=== PATIENT | male | born 1940 | race Caucasian/White ===

== ENCOUNTER 2017-12-23 22:02 | Inpatient (IN) ==
[2017-12-23] MEDS ORDERED: SODIUM CHLORIDE 0.9% 500 ML IV STA (22:21)
[2017-12-23 23:18] LABS: Apearance,Urine CLOUDY (Clear); Bilirubin,Urine Negative (Negative); Blood, Urine Small mg/dL (Negative); Glucose,Urine (UA) Negative (Negative); Ketones,Urine Negative (Negative); Nitrite,Urine Negative (Negative); Protein,Urine 100 MG/DL; RBC,Urine 12 /HPF (0-4); Squamous Epithelial Cell,Urine Occasional /HPF (0-10); Urine Color Yellow (Yellow); Urine Specific Gravity 1.015 (1.001-1.035); Urine Urobilinogen < 2.0 EU/DL (0.2-1.0); WBC,Urine 1751 /HPF (0-6)
[2017-12-23 23:29] LABS: Basophils % 0.4 % (0.0-0.8); Eosinophils # 0.1 10*3/uL (0.0-0.87); Eosinophils % 1.5 % (0.00-10.9); Hematocrit 32.7 VOL% (42.0-52.0); Hemoglobin 10.3 GM/DL (14.0-18.0); Immature Granulocytes % 0.4 %; Immature Granulocytes Absolute 0.02 #; Lymphocytes # 1.1 10*3/uL (1.4-4.0); Lymphocytes % 20.8 % (21.2-54.2); Mean Corpuscular HGB Conc 31.5 GM/DL (32-36); Mean Corpuscular Hemoglobin 30 PG (27-34); Mean Corpuscular Volume 93.7 FL (87-102); Mean Platelet Volume 9.6 FL (9.6-12.0); Monocytes # 0.5 10*3/uL (0.11-0.8); Neutrophils # 3.6 10*3/uL (1.4-7.4); Neutrophils % 67.9 % (38.7-73.9); Platelet Count 225 T/CUMM (130-400); Red Blood Count 3.49 MC/CUMM (3.8-5.5); Red Cell Distribution Width 13.9 % (9.3-17.3); White Blood Count 5.2 T/CUMM (4-12)
[2017-12-23] MEDS: SODIUM CHLORIDE 0.45% 1,000 ML IV SCH (23:30)
[2017-12-23] MEDS ORDERED: ONDANSETRON 4 MG/2 ML VIAL IV PRN (23:32)
[2017-12-23] MEDS ORDERED: DEXTROSE 50% 25 GM/50 ML VIAL IV PRN (23:32)
[2017-12-23] MEDS ORDERED: ACETAMINOPHEN 325 MG TABLET PO PRN (23:32)
[2017-12-23] MEDS ORDERED: GLUCAGON 1 MG VIAL IM PRN (23:32)
[2017-12-23] MEDS ORDERED: cefTRIAXone 1,000 MG in SODIUM CHLORIDE 0.9% 100 ML IV STA (23:35)
[2017-12-23 23:56] LABS: Alanine Aminotransferase 17 U/L (16-61); Albumin 3.1 G/DL (3.4-5.0); Alkaline Phosphatase 79 U/L (45-117); Aspartate Amino Transferase 16 U/L (0-37); Bilirubin,Total < 0.39 MG/DL (0.2-1.0); Calcium 8.6 MG/DL (8.5-10.1); Total Protein 7.5 G/DL (6.4-8.3)
[2017-12-23 23:57] LABS: Blood Urea Nitrogen 32 MG/DL (7-18); Glucose 122 MG/DL (74-106); Osmolality,Calculated 290.1 MOS/KG (273-304); Potassium 4.6 MMOL/L (3.5-5.1); Sodium 142 MMOL/L (136-145)
[2017-12-24] MEDS: LISINOPRIL 5 MG TABLET PO SCH (09:07)
[2017-12-24] MEDS: DOCUSATE SODIUM 100 MG CAPSULE PO SCH ×2 (09:07→20:23)
[2017-12-24] MEDS: SOLIFENACIN 5 MG TABLET PO SCH (09:07)
[2017-12-24] MEDS: CETIRIZINE 10 MG TABLET PO SCH (09:07)
[2017-12-24] MEDS: FINASTERIDE 5 MG TABLET PO SCH (09:07)
[2017-12-24] MEDS: cefTRIAXone 1,000 MG in SYRINGE 1 EACH IV SCH (09:07)
[2017-12-24] MEDS: PIOGLITAZONE 15 MG TABLET PO SCH (09:07)
[2017-12-24] MEDS: OMEGA 3 ACID ETHYL ESTERS 1 GM CAPSULE PO SCH (09:07)
[2017-12-24] MEDS: PANTOPRAZOLE 40 MG TABLET PO SCH (09:07)
[2017-12-24] MEDS: GABAPENTIN 300 MG CAPSULE PO SCH ×2 (09:07→20:23)
[2017-12-24] MEDS: FERROUS SULFATE 325 MG TABLET PO SCH (09:08)
[2017-12-24] MEDS: MULTIVITAMIN (CENTRUM) TABLET PO SCH (09:08)
[2017-12-24] MEDS: SODIUM CHLORIDE 0.45% 1,000 ML IV SCH (14:06)
[2017-12-24] MEDS: TAMSULOSIN 0.4 MG CAPSULE PO SCH (20:23)
[2017-12-24] MEDS: ASPIRIN EC 81 MG TABLET PO SCH (20:23)
[2017-12-25] MEDS: SODIUM CHLORIDE 0.45% 1,000 ML IV SCH ×3 (02:26→15:20)
[2017-12-25] MEDS ORDERED: FLUCONAZOLE 200 MG TABLET PO ONE (09:00)
[2017-12-25] MEDS: cefTRIAXone 1,000 MG in SYRINGE 1 EACH IV SCH (10:35)
[2017-12-25 10:43] LABS: Basophils % 0.4 % (0.0-0.8); Eosinophils # 0.1 10*3/uL (0.0-0.87); Eosinophils % 2.7 % (0.00-10.9); Hematocrit 29.6 VOL% (42.0-52.0); Hemoglobin 9.3 GM/DL (14.0-18.0); Immature Granulocytes % 0.4 %; Immature Granulocytes Absolute 0.02 #; Lymphocytes # 1.3 10*3/uL (1.4-4.0); Lymphocytes % 24.4 % (21.2-54.2); Mean Corpuscular HGB Conc 31.4 GM/DL (32-36); Mean Corpuscular Hemoglobin 30 PG (27-34); Mean Platelet Volume 9.7 FL (9.6-12.0); Monocytes # 0.5 10*3/uL (0.11-0.8); Monocytes % 9.5 % (1.7-12.7); Neutrophils # 3.3 10*3/uL (1.4-7.4); Neutrophils % 62.6 % (38.7-73.9); Platelet Count 192 T/CUMM (130-400); Red Blood Count 3.15 MC/CUMM (3.8-5.5); Red Cell Distribution Width 13.7 % (9.3-17.3); White Blood Count 5.3 T/CUMM (4-12)
[2017-12-25 11:06] LABS: Osmolality,Calculated 287.3 MOS/KG (273-304); Potassium 4.3 MMOL/L (3.5-5.1)
[2017-12-25] MEDS: PIOGLITAZONE 15 MG TABLET PO SCH (11:16)
[2017-12-25] MEDS: DOCUSATE SODIUM 100 MG CAPSULE PO SCH ×2 (11:17→20:43)
[2017-12-25] MEDS: MULTIVITAMIN (CENTRUM) TABLET PO SCH (11:17)
[2017-12-25] MEDS: FERROUS SULFATE 325 MG TABLET PO SCH (11:18)
[2017-12-25] MEDS: GABAPENTIN 300 MG CAPSULE PO SCH ×2 (11:19→20:43)
[2017-12-25] MEDS: OMEGA 3 ACID ETHYL ESTERS 1 GM CAPSULE PO SCH (11:19)
[2017-12-25] MEDS: LISINOPRIL 5 MG TABLET PO SCH (11:20)
[2017-12-25] MEDS: FINASTERIDE 5 MG TABLET PO SCH (11:21)
[2017-12-25] MEDS: PANTOPRAZOLE 40 MG TABLET PO SCH (11:22)
[2017-12-25] MEDS: SOLIFENACIN 5 MG TABLET PO SCH (11:22)
[2017-12-25] MEDS: CETIRIZINE 10 MG TABLET PO SCH (11:23)
[2017-12-25] MEDS: ASPIRIN EC 81 MG TABLET PO SCH (20:42)
[2017-12-25] MEDS: TAMSULOSIN 0.4 MG CAPSULE PO SCH (20:43)
[2017-12-26] MEDS: SODIUM CHLORIDE 0.45% 1,000 ML IV SCH ×3 (01:54→15:07)
[2017-12-26] MEDS: cefTRIAXone 1,000 MG in SYRINGE 1 EACH IV SCH (08:56)
[2017-12-26] MEDS: PIOGLITAZONE 15 MG TABLET PO SCH (08:57)
[2017-12-26] MEDS: FERROUS SULFATE 325 MG TABLET PO SCH (08:57)
[2017-12-26] MEDS: MULTIVITAMIN (CENTRUM) TABLET PO SCH (08:57)
[2017-12-26] MEDS: DOCUSATE SODIUM 100 MG CAPSULE PO SCH ×2 (08:57→20:23)
[2017-12-26] MEDS: OMEGA 3 ACID ETHYL ESTERS 1 GM CAPSULE PO SCH (08:58)
[2017-12-26] MEDS: LISINOPRIL 5 MG TABLET PO SCH (08:58)
[2017-12-26] MEDS: FINASTERIDE 5 MG TABLET PO SCH (08:58)
[2017-12-26] MEDS: SOLIFENACIN 5 MG TABLET PO SCH (08:58)
[2017-12-26] MEDS: PANTOPRAZOLE 40 MG TABLET PO SCH (08:58)
[2017-12-26] MEDS: GABAPENTIN 300 MG CAPSULE PO SCH ×2 (08:58→20:23)
[2017-12-26] MEDS: CETIRIZINE 10 MG TABLET PO SCH (08:59)
[2017-12-26] MEDS: ASPIRIN EC 81 MG TABLET PO SCH (20:23)
[2017-12-26] MEDS: TAMSULOSIN 0.4 MG CAPSULE PO SCH (20:23)
[2017-12-27] MEDS: SODIUM CHLORIDE 0.45% 1,000 ML IV SCH ×4 (00:35→22:09)
[2017-12-27 05:34] LABS: Basophils % 0.4 % (0.0-0.8); Eosinophils # 0.3 10*3/uL (0.0-0.87); Eosinophils % 6.6 % (0.00-10.9); Hematocrit 31.4 VOL% (42.0-52.0); Hemoglobin 10.2 GM/DL (14.0-18.0); Immature Granulocytes % 0.4 %; Immature Granulocytes Absolute 0.02 #; Lymphocytes # 1.2 10*3/uL (1.4-4.0); Lymphocytes % 25.3 % (21.2-54.2); Mean Corpuscular HGB Conc 32.5 GM/DL (32-36); Mean Corpuscular Hemoglobin 30 PG (27-34); Mean Corpuscular Volume 90.8 FL (87-102); Mean Platelet Volume 9.9 FL (9.6-12.0); Monocytes # 0.3 10*3/uL (0.11-0.8); Monocytes % 7.3 % (1.7-12.7); Neutrophils # 2.7 10*3/uL (1.4-7.4); Platelet Count 211 T/CUMM (130-400); Red Blood Count 3.46 MC/CUMM (3.8-5.5); Red Cell Distribution Width 13.7 % (9.3-17.3); White Blood Count 4.5 T/CUMM (4-12)
[2017-12-27 05:48] LABS: Calcium 8.1 MG/DL (8.5-10.1); Osmolality,Calculated 286.3 MOS/KG (273-304); Potassium 4.2 MMOL/L (3.5-5.1)
[2017-12-27] MEDS ORDERED: TUBERCULIN SKIN TEST 0.1 ML SYRINGE INTRADERM ONE (05:56)
[2017-12-27 06:27] LABS: Eosinophils 5 % (0-10); Hypochromasia Slight; Lymphocytes 19 % (20-55); Platelet Estimate Adequate; Segmented Neutrophils 66 % (50-85); Total Cells Counted 100
[2017-12-27] MEDS: DOCUSATE SODIUM 100 MG CAPSULE PO SCH ×2 (09:46→21:03)
[2017-12-27] MEDS: cefTRIAXone 1,000 MG in SYRINGE 1 EACH IV SCH (09:46)
[2017-12-27] MEDS: PIOGLITAZONE 15 MG TABLET PO SCH (09:46)
[2017-12-27] MEDS: MULTIVITAMIN (CENTRUM) TABLET PO SCH (09:46)
[2017-12-27] MEDS: PANTOPRAZOLE 40 MG TABLET PO SCH (09:46)
[2017-12-27] MEDS: GABAPENTIN 300 MG CAPSULE PO SCH ×2 (09:46→21:03)
[2017-12-27] MEDS: SOLIFENACIN 5 MG TABLET PO SCH (09:46)
[2017-12-27] MEDS: OMEGA 3 ACID ETHYL ESTERS 1 GM CAPSULE PO SCH (09:46)
[2017-12-27] MEDS: LISINOPRIL 5 MG TABLET PO SCH (09:47)
[2017-12-27] MEDS: FERROUS SULFATE 325 MG TABLET PO SCH (09:47)
[2017-12-27] MEDS: CETIRIZINE 10 MG TABLET PO SCH (09:47)
[2017-12-27] MEDS: FINASTERIDE 5 MG TABLET PO SCH (09:47)
[2017-12-27] MEDS: ASPIRIN EC 81 MG TABLET PO SCH (21:03)
[2017-12-27] MEDS: TAMSULOSIN 0.4 MG CAPSULE PO SCH (21:03)
[2017-12-28 07:07] LABS: Basophils % 0.4 % (0.0-0.8); Eosinophils # 0.3 10*3/uL (0.0-0.87); Eosinophils % 5.7 % (0.00-10.9); Hematocrit 32.3 VOL% (42.0-52.0); Immature Granulocytes % 0.4 %; Immature Granulocytes Absolute 0.02 #; Lymphocytes % 20.2 % (21.2-54.2); Mean Corpuscular Hemoglobin 29 PG (27-34); Mean Corpuscular Volume 92.8 FL (87-102); Mean Platelet Volume 9.8 FL (9.6-12.0); Monocytes # 0.4 10*3/uL (0.11-0.8); Monocytes % 7.8 % (1.7-12.7); Neutrophils # 3.1 10*3/uL (1.4-7.4); Neutrophils % 65.5 % (38.7-73.9); Platelet Count 231 T/CUMM (130-400); Red Blood Count 3.48 MC/CUMM (3.8-5.5); Red Cell Distribution Width 13.5 % (9.3-17.3); White Blood Count 4.8 T/CUMM (4-12)
[2017-12-28 07:28] LABS: Calcium 8.4 MG/DL (8.5-10.1); Osmolality,Calculated 288.1 MOS/KG (273-304); Potassium 4.3 MMOL/L (3.5-5.1)
[2017-12-28] MEDS: OMEGA 3 ACID ETHYL ESTERS 1 GM CAPSULE PO SCH (09:38)
[2017-12-28] MEDS: MULTIVITAMIN (CENTRUM) TABLET PO SCH (09:38)
[2017-12-28] MEDS: SOLIFENACIN 5 MG TABLET PO SCH (09:38)
[2017-12-28] MEDS: PANTOPRAZOLE 40 MG TABLET PO SCH (09:38)
[2017-12-28] MEDS: GABAPENTIN 300 MG CAPSULE PO SCH (09:38)
[2017-12-28] MEDS: FINASTERIDE 5 MG TABLET PO SCH (09:38)
[2017-12-28] MEDS: PIOGLITAZONE 15 MG TABLET PO SCH (09:38)
[2017-12-28] MEDS: FERROUS SULFATE 325 MG TABLET PO SCH (09:39)
[2017-12-28] MEDS: CETIRIZINE 10 MG TABLET PO SCH (09:39)
[2017-12-28] MEDS: SODIUM CHLORIDE 0.45% 1,000 ML IV SCH (09:39)
[2017-12-28] MEDS: DOCUSATE SODIUM 100 MG CAPSULE PO SCH (09:39)
[2017-12-28] MEDS: LISINOPRIL 5 MG TABLET PO SCH (09:39)
[2017-12-28] MEDS: cefTRIAXone 1,000 MG in SYRINGE 1 EACH IV SCH (09:39)
[2017-12-28 11:53] VITALS: BP 117/66
== END 2017-12-28 15:40 | disposition swing bed (61) | DRG 690 ==
LOC: EDBD → EDUNIT# → N.ED 22:02 → N.EDINP 23:32 → N.3E 12-24 01:47
PROVIDERS: ADMIT Family Medicine; ATTEND Family Medicine

== ENCOUNTER 2018-12-05 17:17 | Inpatient (IN) ==
[2018-12-05 19:22] LABS: Basophils % 0.3 % (0.0-0.8); Hematocrit 35.2 VOL% (42.0-52.0); Hemoglobin 10.7 GM/DL (14.0-18.0); Immature Granulocytes % 0.6 %; Immature Granulocytes Absolute 0.07 #; Lymphocytes # 0.4 10*3/uL (1.4-4.0); Lymphocytes % 3.5 % (21.2-54.2); Mean Corpuscular HGB Conc 30.4 GM/DL (32-36); Mean Corpuscular Volume 96.2 FL (87-102); Mean Platelet Volume 9.7 FL (9.6-12.0); Monocytes % 3.7 % (1.7-12.7); Neutrophils % 91.9 % (38.7-73.9); Platelet Count 158 T/CUMM (130-400); Red Blood Count 3.66 MC/CUMM (3.8-5.5); Red Cell Distribution Width 14.2 % (9.3-17.3)
[2018-12-05 19:42] LABS: Apearance,Urine CLEAR (Clear); Bacteria,Urine Occasional /HPF (Few); Bilirubin,Urine Negative (Negative); Blood, Urine Negative (Negative); Glucose,Urine (UA) Negative (Negative); Ketones,Urine Negative (Negative); Mucus,Urine Occasional /LPF (Occasional); Nitrite,Urine Negative (Negative); Protein,Urine Negative; RBC,Urine 7 /HPF (0-4); Squamous Epithelial Cell,Urine Occasional /HPF (0-10); Urine Color Yellow (Yellow); Urine Specific Gravity 1.016 (1.001-1.035); Urine Urobilinogen < 2.0 EU/DL (0.2-1.0); WBC,Urine 36 /HPF (0-6)
[2018-12-05 19:43] LABS: Albumin 3.6 G/DL (3.4-5.0); Bilirubin,Total 0.4 MG/DL (0.2-1.0); Osmolality,Calculated 283.5 MOS/KG (273-304); Total Protein 7.7 G/DL (6.4-8.3)
[2018-12-05 19:45] LABS: Band Neutrophils 2 % (0-10); Lymphocytes 3 % (20-55); Macrocytosis Slight; Platelet Estimate Adequate; Segmented Neutrophils 90 % (50-85); Total Cells Counted 100
[2018-12-05] MEDS ORDERED: LEVOFLOXACIN INJ 500 MG in PREMIX 1 EACH IV STA (20:03)
[2018-12-05] MEDS ORDERED: ACETAMINOPHEN 325 MG TABLET PO PRN (20:29)
[2018-12-05] MEDS ORDERED: ONDANSETRON 4 MG/2 ML VIAL IV PRN (20:29)
[2018-12-05] MEDS: DOCUSATE SODIUM 100 MG CAPSULE PO SCH (21:36)
[2018-12-05] MEDS: LACTATED RINGERS 1,000 ML IV SCH (22:18)
[2018-12-06 04:34] LABS: Basophils % 0.2 % (0.0-0.8); Hematocrit 32.8 VOL% (42.0-52.0); Hemoglobin 9.9 GM/DL (14.0-18.0); Immature Granulocytes % 0.5 %; Immature Granulocytes Absolute 0.05 #; Lymphocytes # 0.5 10*3/uL (1.4-4.0); Mean Corpuscular HGB Conc 30.2 GM/DL (32-36); Mean Corpuscular Volume 96.5 FL (87-102); Mean Platelet Volume 10.3 FL (9.6-12.0); Monocytes % 3.7 % (1.7-12.7); Neutrophils % 90.6 % (38.7-73.9); Platelet Count 157 T/CUMM (130-400); Red Cell Distribution Width 14.5 % (9.3-17.3); White Blood Count 9.2 T/CUMM (4-12)
[2018-12-06 05:04] LABS: Anisocytosis 1+; Band Neutrophils 3 % (0-10); Eosinophils 1 % (0-10); Lymphocytes 4 % (20-55); Segmented Neutrophils 87 % (50-85); Total Cells Counted 100
[2018-12-06 05:05] LABS: Calcium 8.8 MG/DL (8.5-10.1); Osmolality,Calculated 286.4 MOS/KG (273-304); Platelet Estimate Adequate
[2018-12-06] MEDS: DOCUSATE SODIUM 100 MG CAPSULE PO SCH ×2 (08:55→20:18)
[2018-12-06] MEDS: PANTOPRAZOLE 40 MG TABLET PO SCH (08:55)
[2018-12-06] MEDS: LEVOFLOXACIN INJ 500 MG in PREMIX 1 EACH IV SCH (09:22)
[2018-12-06] MEDS: LACTATED RINGERS 1,000 ML IV SCH ×2 (09:22→19:02)
[2018-12-06] MEDS ORDERED: NAPROXEN 250 MG TABLET PO PRN (09:36)
[2018-12-06] MEDS ORDERED: MECLIZINE 25 MG TABLET PO PRN (09:36)
[2018-12-06] MEDS: DICYCLOMINE 10 MG CAPSULE PO SCH ×2 (10:21→20:17)
[2018-12-06] MEDS: GABAPENTIN 300 MG CAPSULE PO SCH ×2 (10:21→20:18)
[2018-12-06] MEDS: ASPIRIN EC 81 MG TABLET PO SCH (10:22)
[2018-12-06] MEDS: LISINOPRIL 5 MG TABLET PO SCH (10:22)
[2018-12-06] MEDS: NON-FORMULARY MEDICATION (Mirabegron [Myrbetriq] 50 MG) PO SCH (10:22)
[2018-12-06] MEDS: FINASTERIDE 5 MG TABLET PO SCH (10:22)
[2018-12-06] MEDS: PIOGLITAZONE 15 MG TABLET PO SCH (10:22)
[2018-12-06] MEDS: TAMSULOSIN 0.4 MG CAPSULE PO SCH (20:17)
[2018-12-07] MEDS: SODIUM CHLORIDE 0.9% 1,000 ML IV SCH ×2 (01:12→12:06)
[2018-12-07 05:27] LABS: Calcium 8.5 MG/DL (8.5-10.1); Osmolality,Calculated 281.7 MOS/KG (273-304)
[2018-12-07] MEDS: MULTIVITAMIN (CENTRUM) TABLET PO SCH (08:55)
[2018-12-07] MEDS: DOCUSATE SODIUM 100 MG CAPSULE PO SCH ×2 (08:55→21:13)
[2018-12-07] MEDS: TAMSULOSIN 0.4 MG CAPSULE PO SCH ×2 (08:55→21:13)
[2018-12-07] MEDS: FINASTERIDE 5 MG TABLET PO SCH (08:55)
[2018-12-07] MEDS: GABAPENTIN 300 MG CAPSULE PO SCH ×2 (08:55→21:13)
[2018-12-07] MEDS: LISINOPRIL 5 MG TABLET PO SCH (08:55)
[2018-12-07] MEDS: PIOGLITAZONE 15 MG TABLET PO SCH (08:55)
[2018-12-07] MEDS: DICYCLOMINE 10 MG CAPSULE PO SCH ×2 (08:55→21:13)
[2018-12-07] MEDS: FERROUS SULFATE 325 MG TABLET PO SCH (08:56)
[2018-12-07] MEDS: ASPIRIN EC 81 MG TABLET PO SCH (08:56)
[2018-12-07] MEDS: PANTOPRAZOLE 40 MG TABLET PO SCH (08:56)
[2018-12-07] MEDS: LEVOFLOXACIN INJ 500 MG in PREMIX 1 EACH IV SCH (08:59)
[2018-12-07] MEDS: OMEGA 3 ACID ETHYL ESTERS 1 GM CAPSULE PO SCH (10:14)
[2018-12-07] MEDS: NON-FORMULARY MEDICATION (Mirabegron [Myrbetriq] 50 MG) PO SCH (10:14)
[2018-12-07] MEDS ORDERED: TUBERCULIN SKIN TEST 0.1 ML SYRINGE INTRADERM ONE (10:25)
[2018-12-08] MEDS: SODIUM CHLORIDE 0.9% 1,000 ML IV SCH ×3 (00:28→16:14)
[2018-12-08] MEDS: FINASTERIDE 5 MG TABLET PO SCH (09:24)
[2018-12-08] MEDS: LISINOPRIL 5 MG TABLET PO SCH (09:24)
[2018-12-08] MEDS: ASPIRIN EC 81 MG TABLET PO SCH (09:25)
[2018-12-08] MEDS: FERROUS SULFATE 325 MG TABLET PO SCH (09:25)
[2018-12-08] MEDS: PIOGLITAZONE 15 MG TABLET PO SCH (09:25)
[2018-12-08] MEDS: NON-FORMULARY MEDICATION (Mirabegron [Myrbetriq] 50 MG) PO SCH (09:25)
[2018-12-08] MEDS: TAMSULOSIN 0.4 MG CAPSULE PO SCH ×2 (09:25→21:36)
[2018-12-08] MEDS: DOCUSATE SODIUM 100 MG CAPSULE PO SCH ×2 (09:25→21:36)
[2018-12-08] MEDS: OMEGA 3 ACID ETHYL ESTERS 1 GM CAPSULE PO SCH (09:25)
[2018-12-08] MEDS: MULTIVITAMIN (CENTRUM) TABLET PO SCH (09:25)
[2018-12-08] MEDS: DICYCLOMINE 10 MG CAPSULE PO SCH ×2 (09:25→21:36)
[2018-12-08] MEDS: GABAPENTIN 300 MG CAPSULE PO SCH ×2 (09:25→21:36)
[2018-12-08] MEDS: LEVOFLOXACIN INJ 500 MG in PREMIX 1 EACH IV SCH (09:26)
[2018-12-08] MEDS: PANTOPRAZOLE 40 MG TABLET PO SCH (09:30)
[2018-12-08] MEDS ORDERED: SKIN HEALING OINT (AQUAPHOR) 50 GM TUBE TOP PRN (14:40)
[2018-12-08] MEDS: VANCOMYCIN INJ 1,500 MG in SODIUM CHLORIDE 0.9% 500 ML IV SCH (16:18)
[2018-12-08] MEDS: ZINC OXIDE PASTE 113 GM TUBE TOP SCH ×2 (16:20→21:36)
[2018-12-09] MEDS: SODIUM CHLORIDE 0.9% 1,000 ML IV SCH (02:43)
[2018-12-09] MEDS: NON-FORMULARY MEDICATION (Mirabegron [Myrbetriq] 50 MG) PO SCH (08:54)
[2018-12-09] MEDS: DOCUSATE SODIUM 100 MG CAPSULE PO SCH (08:55)
[2018-12-09] MEDS: GABAPENTIN 300 MG CAPSULE PO SCH (08:55)
[2018-12-09] MEDS: OMEGA 3 ACID ETHYL ESTERS 1 GM CAPSULE PO SCH (08:56)
[2018-12-09] MEDS: ASPIRIN EC 81 MG TABLET PO SCH (08:56)
[2018-12-09] MEDS: LISINOPRIL 5 MG TABLET PO SCH (08:56)
[2018-12-09] MEDS: TAMSULOSIN 0.4 MG CAPSULE PO SCH (08:56)
[2018-12-09] MEDS: FINASTERIDE 5 MG TABLET PO SCH (08:56)
[2018-12-09] MEDS: MULTIVITAMIN (CENTRUM) TABLET PO SCH (08:57)
[2018-12-09] MEDS: PANTOPRAZOLE 40 MG TABLET PO SCH (08:57)
[2018-12-09] MEDS: DICYCLOMINE 10 MG CAPSULE PO SCH (08:57)
[2018-12-09] MEDS: FERROUS SULFATE 325 MG TABLET PO SCH (08:57)
[2018-12-09] MEDS: PIOGLITAZONE 15 MG TABLET PO SCH (08:57)
[2018-12-09] MEDS: ZINC OXIDE PASTE 113 GM TUBE TOP SCH (09:05)
[2018-12-09] MEDS: VANCOMYCIN INJ 1,500 MG in SODIUM CHLORIDE 0.9% 500 ML IV SCH (13:07)
[2018-12-09 16:14] VITALS: BP 121/61
== END 2018-12-09 16:30 | DRG 690 ==
LOC: EDBD → EDUNIT# → N.ED 17:17 → N.EDINP 20:26 → N.5E 20:54
PROVIDERS: ADMIT Family Medicine; ATTEND Family Medicine

== ENCOUNTER 2020-04-28 17:03 | Observation (INO) ==
[2020-04-28] MEDS ORDERED: SODIUM CHLORIDE 0.9% 1,000 ML IV STA (17:28)
[2020-04-28 17:39] LABS: Basophils % 0.3 % (0.0-0.8); Hematocrit 30.3 VOL% (42.0-52.0); Hemoglobin 9.6 GM/DL (14.0-18.0); Immature Granulocytes % 0.1 %; Immature Granulocytes Absolute 0.01 #; Lymphocytes # 1.1 10*3/uL (1.4-4.0); Lymphocytes % 15.2 % (21.2-54.2); Mean Corpuscular HGB Conc 31.7 GM/DL (32-36); Mean Corpuscular Volume 89.6 FL (87-102); Monocytes % 9.8 % (1.7-12.7); Neutrophils % 74.6 % (38.7-73.9); Platelet Count 175 T/CUMM (130-400); Red Blood Count 3.38 MC/CUMM (3.8-5.5); White Blood Count 7.2 T/CUMM (4-12)
[2020-04-28 17:48] LABS: INR 1.1; PT Patient Result 11.5 SECS (9.8-11.9)
[2020-04-28 18:02] LABS: Albumin 3.2 G/DL (3.4-5.0); Bilirubin,Total 0.5 MG/DL (0.2-1.0); Calcium 8.8 MG/DL (8.5-10.1); Osmolality,Calculated 287.1 MOS/KG (273-304); Total Protein 7.2 G/DL (6.4-8.3)
[2020-04-28 19:11] LABS: Bacteria,Urine Moderate /HPF (Few); Bilirubin,Urine Negative (Negative); Blood, Urine Moderate mg/dL (Negative); Glucose,Urine (UA) Negative (Negative); Ketones,Urine Negative (Negative); Mucus,Urine Occasional /LPF (Occasional); Nitrite,Urine Negative (Negative); Protein,Urine Negative; RBC,Urine 4 /HPF (0-4); Squamous Epithelial Cell,Urine Occasional /HPF (0-10); Urine Appearance Slightly Hazy (Clear); Urine Color Yellow (Yellow); Urine Specific Gravity 1.013 (1.001-1.035); Urine Urobilinogen < 2.0 EU/DL (0.2-1.0); WBC,Urine 125 /HPF (0-6)
[2020-04-28] MEDS ORDERED: PIPERACILLIN/TAZOBACTAM 3,375 MG in SODIUM CHLORIDE 0.9% 100 ML IV STA (19:25)
[2020-04-28] MEDS ORDERED: GLUCAGON 1 MG VIAL IM PRN ×2 (19:57→19:58)
[2020-04-28] MEDS ORDERED: DEXTROSE 50% 25 GM/50 ML VIAL IV PRN ×2 (19:57→19:58)
[2020-04-28] MEDS: INSULIN LISPRO 100 UNIT/ML SUBCUT SCH (22:35)
[2020-04-28] MEDS: HEPARIN 5,000 UNIT/1 ML VIAL SUBCUT SCH (22:42)
[2020-04-28] MEDS ORDERED: ACETAMINOPHEN 325 MG TABLET PO PRN (23:46)
[2020-04-29] MEDS: HEPARIN 5,000 UNIT/1 ML VIAL SUBCUT SCH ×3 (04:06→21:52)
[2020-04-29 05:22] LABS: Basophils % 0.2 % (0.0-0.8); Eosinophils % 0.2 % (0.00-10.9); Hematocrit 29.5 VOL% (42.0-52.0); Hemoglobin 9.1 GM/DL (14.0-18.0); Immature Granulocytes % 0.2 %; Immature Granulocytes Absolute 0.01 #; Lymphocytes # 0.7 10*3/uL (1.4-4.0); Lymphocytes % 14.6 % (21.2-54.2); Mean Corpuscular HGB Conc 30.8 GM/DL (32-36); Mean Corpuscular Volume 90.5 FL (87-102); Neutrophils % 76.8 % (38.7-73.9); Platelet Count 151 T/CUMM (130-400); Red Blood Count 3.26 MC/CUMM (3.8-5.5)
[2020-04-29 05:45] LABS: Albumin 2.9 G/DL (3.4-5.0); Bilirubin,Total 0.6 MG/DL (0.2-1.0); Calcium 8.3 MG/DL (8.5-10.1); Osmolality,Calculated 286.1 MOS/KG (273-304); Thyroid Stimulating Hormone 1.53 uIU/ml (0.358-3.74); Total Protein 6.5 G/DL (6.4-8.3)
[2020-04-29 05:58] LABS: Hypochromasia 1+; Lymphocytes 12 % (20-55); Microcytosis 1+; Ovalocytes Slight; Platelet Estimate Adequate; Segmented Neutrophils 82 % (50-85); Total Cells Counted 100
[2020-04-29] MEDS: cefTRIAXone 1,000 MG in SODIUM CHLORIDE 0.9% 100 ML IV SCH (08:35)
[2020-04-29] MEDS: INSULIN LISPRO 100 UNIT/ML SUBCUT SCH ×4 (09:57→21:53)
[2020-04-29] MEDS ORDERED: LACTULOSE 20 GM/30 ML UDCUP PO PRN (11:33)
[2020-04-29 12:11] LABS: Basophils % 0.2 % (0.0-0.8); Eosinophils % 0.2 % (0.00-10.9); Hematocrit 29.3 VOL% (42.0-52.0); Immature Granulocytes % 0.2 %; Immature Granulocytes Absolute 0.01 #; Lymphocytes # 0.7 10*3/uL (1.4-4.0); Lymphocytes % 17.3 % (21.2-54.2); Mean Corpuscular HGB Conc 30.7 GM/DL (32-36); Mean Corpuscular Volume 89.9 FL (87-102); Mean Platelet Volume 9.8 FL (9.6-12.0); Monocytes % 7.8 % (1.7-12.7); Neutrophils % 74.3 % (38.7-73.9); Platelet Count 151 T/CUMM (130-400); Red Blood Count 3.26 MC/CUMM (3.8-5.5); Red Cell Distribution Width 13.8 % (9.3-17.3); White Blood Count 4.2 T/CUMM (4-12)
[2020-04-29 12:28] LABS: Calcium 8.5 MG/DL (8.5-10.1); Osmolality,Calculated 285.3 MOS/KG (273-304)
[2020-04-29 12:40] LABS: Band Neutrophils 7 % (0-10); Eosinophils 1 % (0-10); Lymphocytes 14 % (20-55); Segmented Neutrophils 73 % (50-85); Total Cells Counted 100
[2020-04-29 12:41] LABS: Anisocytosis 1+; Ovalocytes Few; Platelet Estimate Normal
[2020-04-30] MEDS: HEPARIN 5,000 UNIT/1 ML VIAL SUBCUT SCH ×3 (05:54→20:23)
[2020-04-30 06:31] LABS: Basophils % 0.5 % (0.0-0.8); Eosinophils % 1.1 % (0.00-10.9); Hematocrit 31.5 VOL% (42.0-52.0); Hemoglobin 9.8 GM/DL (14.0-18.0); Immature Granulocytes % 0.3 %; Immature Granulocytes Absolute 0.01 #; Lymphocytes % 28.1 % (21.2-54.2); Mean Corpuscular HGB Conc 31.1 GM/DL (32-36); Mean Corpuscular Volume 89.5 FL (87-102); Mean Platelet Volume 9.9 FL (9.6-12.0); Monocytes % 6.5 % (1.7-12.7); Neutrophils % 63.5 % (38.7-73.9); Platelet Count 162 T/CUMM (130-400); Red Blood Count 3.52 MC/CUMM (3.8-5.5); Red Cell Distribution Width 13.9 % (9.3-17.3); White Blood Count 3.7 T/CUMM (4-12)
[2020-04-30 06:58] LABS: Band Neutrophils 1 % (0-10); Calcium 8.7 MG/DL (8.5-10.1); Eosinophils 2 % (0-10); Hypochromasia 1+; Lymphocytes 25 % (20-55); Microcytosis 1+; Osmolality,Calculated 287.1 MOS/KG (273-304); Segmented Neutrophils 67 % (50-85); Total Cells Counted 100
[2020-04-30 06:59] LABS: Atypical Lymphocytes Few; Ovalocytes Few; Platelet Estimate Adequate
[2020-04-30] MEDS: INSULIN LISPRO 100 UNIT/ML SUBCUT SCH ×4 (07:34→20:39)
[2020-04-30] MEDS: cefTRIAXone 1,000 MG in SODIUM CHLORIDE 0.9% 100 ML IV SCH (08:51)
[2020-05-01 06:29] LABS: Basophils % 0.4 % (0.0-0.8); Eosinophils # 0.1 10*3/uL (0.0-0.87); Eosinophils % 2.7 % (0.00-10.9); Hematocrit 31.7 VOL% (42.0-52.0); Immature Granulocytes % 0.4 %; Immature Granulocytes Absolute 0.01 #; Lymphocytes # 0.8 10*3/uL (1.4-4.0); Lymphocytes % 31.8 % (21.2-54.2); Mean Corpuscular HGB Conc 31.5 GM/DL (32-36); Mean Corpuscular Volume 88.3 FL (87-102); Mean Platelet Volume 10.4 FL (9.6-12.0); Monocytes % 13.8 % (1.7-12.7); Neutrophils % 50.9 % (38.7-73.9); Platelet Count 174 T/CUMM (130-400); Red Blood Count 3.59 MC/CUMM (3.8-5.5); Red Cell Distribution Width 13.5 % (9.3-17.3); White Blood Count 2.6 T/CUMM (4-12)
[2020-05-01] MEDS: HEPARIN 5,000 UNIT/1 ML VIAL SUBCUT SCH ×2 (06:41→13:54)
[2020-05-01 06:44] LABS: Calcium 8.6 MG/DL (8.5-10.1); Osmolality,Calculated 289.1 MOS/KG (273-304)
[2020-05-01 06:53] LABS: Band Neutrophils 1 % (0-10); Eosinophils 2 % (0-10); Hypochromasia 1+; Lymphocytes 27 % (20-55); Ovalocytes Slight; Platelet Estimate Adequate; Segmented Neutrophils 62 % (50-85); Total Cells Counted 100
[2020-05-01 06:54] LABS: Atypical Lymphocytes Few; Microcytosis Slight
[2020-05-01] MEDS: INSULIN LISPRO 100 UNIT/ML SUBCUT SCH ×3 (08:15→16:29)
[2020-05-01] MEDS: cefTRIAXone 1,000 MG in SODIUM CHLORIDE 0.9% 100 ML IV SCH (08:16)
[2020-05-01 19:41] VITALS: BP 113/61
== END 2020-05-01 20:45 ==
LOC: N.ED 17:03 → INTOOBSV 19:56 → N.EDINP 19:56 → N.4E 22:46
PROVIDERS: ADMIT Family Medicine; ATTEND Family Medicine

== ENCOUNTER 2022-04-05 15:56 | Inpatient (IN) ==
[2022-04-05 16:18] LABS: Basophils % 0.4 % (0.0-0.8); Eosinophils # 0.1 10*3/uL (0.0-0.87); Eosinophils % 0.6 % (0.00-10.9); Hematocrit 29.4 VOL% (42.0-52.0); Hemoglobin 9.3 GM/DL (14.0-18.0); Immature Granulocytes % 0.3 %; Immature Granulocytes Absolute 0.02 #; Lymphocytes # 1.3 10*3/uL (1.4-4.0); Lymphocytes % 15.9 % (21.2-54.2); Mean Corpuscular HGB Conc 31.6 GM/DL (32-36); Mean Corpuscular Volume 90.2 FL (87-102); Mean Platelet Volume 9.9 FL (9.6-12.0); Monocytes # 0.4 10*3/uL (0.11-0.8); Monocytes % 5.1 % (1.7-12.7); Neutrophils % 77.7 % (38.7-73.9); Platelet Count 214 T/CUMM (130-400); Red Blood Count 3.26 MC/CUMM (3.8-5.5); Red Cell Distribution Width 14.4 % (9.3-17.3)
[2022-04-05] MEDS ORDERED: ACETAMINOPHEN 500 MG TABLET PO STA (16:22)
[2022-04-05] MEDS ORDERED: SODIUM CHLORIDE 0.9% 1,000 ML IV STA (16:22)
[2022-04-05 16:27] LABS: Alanine Aminotransferase 21 U/L (16-61); Albumin 2.6 G/DL (3.4-5.0); Alkaline Phosphatase 94 U/L (45-117); Aspartate Amino Transferase 18 U/L (0-37); Bilirubin,Total < 0.39 MG/DL (0.20-1.00); Blood Urea Nitrogen 34 MG/DL (7-18); Calcium 8.7 MG/DL (8.5-10.1); Carbon Dioxide 25 MMOL/L (21-32); Chloride 106 MMOL/L (98-107); Glucose 137 MG/DL (74-106); Osmolality,Calculated 286.5 MOS/KG (273-304); Potassium 4.2 MMOL/L (3.5-5.1); Sodium 139 MMOL/L (136-145); Total Protein 7.3 G/DL (6.4-8.2)
[2022-04-05 17:02] LABS: Urine Appearance Slightly Hazy (Clear); Urine Color Yellow (Yellow)
[2022-04-05 17:03] LABS: Bilirubin,Urine Negative (Negative); Blood, Urine Moderate mg/dL (Negative); Glucose,Urine (UA) Negative (Negative); Ketones,Urine Negative (Negative); Nitrite,Urine Positive (Negative); Protein,Urine Trace mg/dL (Negative); Urine Specific Gravity 1.015 (1.001-1.035)
[2022-04-05 17:04] LABS: Urine Urobilinogen 0.2 eU/dL (<2.0)
[2022-04-05 17:07] LABS: Bacteria,Urine Moderate /HPF (Few); Mucus,Urine Few /LPF (Occasional); RBC,Urine 8 /HPF (0-4)
[2022-04-05] MEDS ORDERED: cefTRIAXone 1,000 MG in SODIUM CHLORIDE 0.9% 100 ML IV STA (17:11)
[2022-04-05] MEDS ORDERED: DEXTROSE 10% 250 ML BAG IV PRN (17:42)
[2022-04-05] MEDS ORDERED: GLUCAGON 1 MG VIAL IM PRN (17:42)
[2022-04-05] MEDS ORDERED: DEXTROSE 50% 25 GM/50 ML VIAL IV PRN (17:43)
[2022-04-05] MEDS ORDERED: ONDANSETRON 4 MG/2 ML VIAL IV PRN (17:43)
[2022-04-05] MEDS ORDERED: DOCUSATE SODIUM 100 MG CAPSULE PO PRN (17:43)
[2022-04-05] MEDS ORDERED: hydrALAZINE 20 MG/1 ML VIAL IV PRN (17:43)
[2022-04-05] MEDS ORDERED: ACETAMINOPHEN 325 MG TABLET PO PRN (17:43)
[2022-04-05] MEDS ORDERED: traMADol 50 MG TABLET PO PRN (18:13)
[2022-04-05] MEDS ORDERED: MAGNESIUM HYDROXIDE SUSP 30 ML UDCUP PO PRN (18:13)
[2022-04-05] MEDS: SODIUM CHLORIDE 0.9% 1,000 ML IV SCH (18:46)
[2022-04-05] MEDS: FERROUS SULFATE 325 MG TABLET PO SCH (21:30)
[2022-04-05] MEDS: DICYCLOMINE 10 MG CAPSULE PO SCH (21:30)
[2022-04-05] MEDS: TAMSULOSIN 0.4 MG CAPSULE PO SCH (21:30)
[2022-04-05] MEDS: SERTRALINE 25 MG TABLET PO SCH (21:31)
[2022-04-05] MEDS: INSULIN LISPRO 100 UNIT/ML SUBCUT SCH (22:24)
[2022-04-06] MEDS: SODIUM CHLORIDE 0.9% 1,000 ML IV SCH ×2 (05:08→15:21)
[2022-04-06 05:40] LABS: Basophils % 0.3 % (0.0-0.8); Eosinophils # 0.2 10*3/uL (0.0-0.87); Eosinophils % 2.2 % (0.00-10.9); Hematocrit 27.5 VOL% (42.0-52.0); Hemoglobin 8.4 GM/DL (14.0-18.0); Immature Granulocytes % 0.3 %; Immature Granulocytes Absolute 0.02 #; Lymphocytes # 1.1 10*3/uL (1.4-4.0); Lymphocytes % 15.6 % (21.2-54.2); Mean Corpuscular HGB Conc 30.5 GM/DL (32-36); Mean Corpuscular Volume 92.6 FL (87-102); Mean Platelet Volume 10.3 FL (9.6-12.0); Monocytes # 0.4 10*3/uL (0.11-0.8); Neutrophils % 75.6 % (38.7-73.9); Platelet Count 180 T/CUMM (130-400); Red Blood Count 2.97 MC/CUMM (3.8-5.5); Red Cell Distribution Width 14.6 % (9.3-17.3); White Blood Count 7.2 T/CUMM (4-12)
[2022-04-06 06:04] LABS: Folate 7.52 NG/ML (5.38-24.0)
[2022-04-06 06:09] LABS: Calcium 8.3 MG/DL (8.5-10.1); Risk Ratio 2.24; Thyroid Stimulating Hormone 3.23 uIU/ml (0.358-3.74); VLDL Cholesterol 14.8 MG/DL
[2022-04-06 06:11] LABS: Band Neutrophils 9 % (0-10); Eosinophils 5 % (0-10); Lymphocytes 16 % (20-55); Platelet Estimate Normal; Total Cells Counted 100
[2022-04-06 06:31] LABS: % Iron Saturation 8.6 % (18-50); Ferritin 450.3 ng/mL (26-388)
[2022-04-06] MEDS: INSULIN LISPRO 100 UNIT/ML SUBCUT SCH ×4 (07:48→21:20)
[2022-04-06] MEDS: PANTOPRAZOLE 40 MG TABLET PO SCH (08:20)
[2022-04-06] MEDS: FERROUS SULFATE 325 MG TABLET PO SCH ×2 (08:20→21:25)
[2022-04-06] MEDS: FINASTERIDE 5 MG TABLET PO SCH (08:20)
[2022-04-06] MEDS: TAMSULOSIN 0.4 MG CAPSULE PO SCH ×2 (08:20→21:25)
[2022-04-06] MEDS: DICYCLOMINE 10 MG CAPSULE PO SCH ×2 (08:20→21:25)
[2022-04-06] MEDS: cefTRIAXone 1,000 MG in SODIUM CHLORIDE 0.9% 100 ML IV SCH (08:28)
[2022-04-06] MEDS: MIRABEGRON 50 MG PO SCH (09:40)
[2022-04-06] MEDS: SERTRALINE 25 MG TABLET PO SCH (21:25)
[2022-04-06] MEDS: CHOLECALCIFEROL 5,000 UNIT TABLET PO SCH (21:26)
[2022-04-07] MEDS: SODIUM CHLORIDE 0.9% 1,000 ML IV SCH ×3 (03:44→22:25)
[2022-04-07 06:16] LABS: Basophils % 0.3 % (0.0-0.8); Eosinophils # 0.3 10*3/uL (0.0-0.87); Eosinophils % 4.9 % (0.00-10.9); Hematocrit 25.5 VOL% (42.0-52.0); Hemoglobin 7.8 GM/DL (14.0-18.0); Immature Granulocytes % 0.3 %; Immature Granulocytes Absolute 0.02 #; Lymphocytes # 1.4 10*3/uL (1.4-4.0); Lymphocytes % 22.7 % (21.2-54.2); Mean Corpuscular HGB Conc 30.6 GM/DL (32-36); Mean Corpuscular Volume 93.4 FL (87-102); Mean Platelet Volume 9.9 FL (9.6-12.0); Monocytes # 0.4 10*3/uL (0.11-0.8); Monocytes % 6.4 % (1.7-12.7); Neutrophils % 65.4 % (38.7-73.9); Platelet Count 160 T/CUMM (130-400); Red Blood Count 2.73 MC/CUMM (3.8-5.5); Red Cell Distribution Width 14.5 % (9.3-17.3); White Blood Count 5.9 T/CUMM (4-12)
[2022-04-07 06:38] LABS: Osmolality,Calculated 291.8 MOS/KG (273-304); Potassium 3.6 MMOL/L (3.5-5.1)
[2022-04-07] MEDS: INSULIN LISPRO 100 UNIT/ML SUBCUT SCH ×4 (07:12→21:31)
[2022-04-07] MEDS: CHOLECALCIFEROL 5,000 UNIT TABLET PO SCH ×2 (08:12→21:02)
[2022-04-07] MEDS: FERROUS SULFATE 325 MG TABLET PO SCH ×2 (08:12→21:02)
[2022-04-07] MEDS: FINASTERIDE 5 MG TABLET PO SCH (08:12)
[2022-04-07] MEDS: TAMSULOSIN 0.4 MG CAPSULE PO SCH ×2 (08:12→21:02)
[2022-04-07] MEDS: DICYCLOMINE 10 MG CAPSULE PO SCH ×2 (08:13→21:02)
[2022-04-07] MEDS: PANTOPRAZOLE 40 MG TABLET PO SCH (08:13)
[2022-04-07] MEDS: cefTRIAXone 1,000 MG in SODIUM CHLORIDE 0.9% 100 ML IV SCH (08:20)
[2022-04-07] MEDS: MIRABEGRON 50 MG PO SCH (08:36)
[2022-04-07] MEDS ORDERED: SODIUM CHLORIDE 0.9% 1,000 ML IV PRN (13:36)
[2022-04-07] MEDS: SERTRALINE 25 MG TABLET PO SCH (21:02)
[2022-04-07 21:18] LABS: Hematocrit 29.6 VOL% (42.0-52.0); Hemoglobin 9.3 GM/DL (14.0-18.0)
[2022-04-07 21:27] LABS: % Iron Saturation 10.1 % (18-50)
[2022-04-08 06:49] LABS: Basophils % 0.5 % (0.0-0.8); Eosinophils # 0.2 10*3/uL (0.0-0.87); Eosinophils % 3.7 % (0.00-10.9); Hematocrit 30.9 VOL% (42.0-52.0); Hemoglobin 9.5 GM/DL (14.0-18.0); Immature Granulocytes % 0.3 %; Immature Granulocytes Absolute 0.02 #; Lymphocytes # 1.5 10*3/uL (1.4-4.0); Lymphocytes % 24.3 % (21.2-54.2); Mean Corpuscular HGB Conc 30.7 GM/DL (32-36); Mean Corpuscular Volume 90.6 FL (87-102); Mean Platelet Volume 9.7 FL (9.6-12.0); Monocytes # 0.3 10*3/uL (0.11-0.8); Monocytes % 5.4 % (1.7-12.7); Neutrophils % 65.8 % (38.7-73.9); Platelet Count 181 T/CUMM (130-400); Red Blood Count 3.41 MC/CUMM (3.8-5.5); Red Cell Distribution Width 14.6 % (9.3-17.3)
[2022-04-08 07:09] LABS: Calcium 8.4 MG/DL (8.5-10.1); Osmolality,Calculated 295.6 MOS/KG (273-304); Potassium 3.5 MMOL/L (3.5-5.1)
[2022-04-08 08:00] LABS: Folate 7.97 NG/ML (5.38-24.0)
[2022-04-08] MEDS: cefTRIAXone 1,000 MG in SODIUM CHLORIDE 0.9% 100 ML IV SCH (08:21)
[2022-04-08] MEDS: TAMSULOSIN 0.4 MG CAPSULE PO SCH (09:29)
[2022-04-08] MEDS: FINASTERIDE 5 MG TABLET PO SCH (09:29)
[2022-04-08] MEDS: PANTOPRAZOLE 40 MG TABLET PO SCH (09:30)
[2022-04-08] MEDS: CHOLECALCIFEROL 5,000 UNIT TABLET PO SCH (09:30)
[2022-04-08] MEDS: DICYCLOMINE 10 MG CAPSULE PO SCH (09:31)
[2022-04-08] MEDS: FERROUS SULFATE 325 MG TABLET PO SCH (09:31)
[2022-04-08] MEDS: MIRABEGRON 50 MG PO SCH (09:36)
[2022-04-08] MEDS: INSULIN LISPRO 100 UNIT/ML SUBCUT SCH ×3 (09:36→16:53)
[2022-04-08] MEDS: SODIUM CHLORIDE 0.9% 1,000 ML IV SCH ×2 (12:20→18:29)
[2022-04-08] MEDS ORDERED: LACTULOSE 20 GM/30 ML UDCUP PO ONE (15:00)
[2022-04-08 16:30] VITALS: BP 156/74
== END 2022-04-08 17:55 | DRG 689 ==
LOC: SUATTDRO → N.ED 15:56 → SUATTDRO 17:42 → N.EDINP 17:42 → N.5E 20:32
PROVIDERS: ADMIT Internal Medicine; ATTEND Internal Medicine